=== PATIENT | male | born 1985 | race Two or more races ===

== ENCOUNTER 2022-04-19 02:17 | Emergency (ER) | payer MEDICAID ==
[~2022-04-19] VITALS: Ht 182.9 cm; Wt 79.8 kg
[2022-04-19 02:17] VITALS: BP 123/80
--- NOTE | 2022-04-19 03:23 | NUR ---
Patient discharged to home in stable condition. Written and verbal after care instructions given. Patient verbalizes understanding of instruction. Pt ambulatory with a steady gait
== END 2022-04-19 03:24 | disposition home or self-care (01) ==
LOC: ER 02:18
DX: J02.9 Acute pharyngitis, unspecified (principal)